=== PATIENT | female | born 1965 | race African-American/Black ===

== ENCOUNTER 2018-12-31 21:02 | Emergency (ER) | payer OTHER ==
[~2018-12-31] VITALS: Ht 157.5 cm; Wt 102.0 kg
[~2018-12-31 21:02] MED LIST: GLUCOTROL
[2019-01-01] MEDS ORDERED: SODIUM CHLORIDE 0.9% 1,000 ML IV ONE (01:37)
[2019-01-01] MEDS ORDERED: ONDANSETRON HCL 4MG/2ML INJ IV STA (01:37)
[2019-01-01] MEDS ORDERED: MECLIZINE 12.5MG TABLET PO ONE (01:45)
[2019-01-01 02:08] LABS: BASOPHILS % 0.7 % (0.0-2.0); CHLORIDE 103 mEq/L (98-107); HEMATOCRIT. 37.9 % (36.0-48.0); HEMOGLOBIN. 12.6 g/dL (12.0-16.0); LYMPHOCYTES % 35.4 % (20.0-50.0); MEAN CORPUSCULAR HEMOGLOBIN 27.7 pg (28.0-32.0); MEAN PLATELET VOLUME 8.9 fl (7.4-10.4); MONOCYTES % 4.2 % (2.0-8.0); NEUTROPHILS % 58.7 % (40.0-76.0); PLATELET 201 x1000/uL (130-400); RED BLOOD CELL COUNT 4.56 mill/uL (4.2-5.4); RED CELL DISTRIBUTION WIDTH 13.8 % (11.6-14.6)
[2019-01-01 05:15] VITALS: BP 117/63
== END 2019-01-01 05:42 | disposition home or self-care (01) ==
LOC: ER 21:02
DX: R42 Dizziness and giddiness (principal); R51 Headache; E11.65 Type 2 diabetes mellitus with hyperglycemia; E78.00 Pure hypercholesterolemia, unspecified; Z90.49 Acquired absence of other specified parts of digestive tract
CPT/HCPCS: 36415; 70450; 71045; 80053; 84484; 85025; 93005; 96361; 96374; 99284; J2405; J7030; J7040; J8597; Z7610

== ENCOUNTER 2022-11-14 10:29 | Emergency (ER) | payer OTHER ==
[~2022-11-14] VITALS: Ht 172.7 cm; Wt 90.0 kg
[2022-11-14 10:37] VITALS: BP 128/85
== END 2022-11-14 16:46 | disposition left against medical advice (07) ==
LOC: ER 10:29
DX: Z53.21 Procedure and treatment not carried out due to patient leaving prior to being seen by health care provider (principal)